=== PATIENT | female | born 1960 | race Caucasian/White ===

== ENCOUNTER → 2020-11-04 14:50 | Outpatient (CLI) | payer BC, SELFPAY ==
--- NOTE | ~2020-11-04 | DEXA_ITS ---
Bone Density Report Name: Jayla Yadav Age: 60 Sex: Female Ethnicity: White Date of : 1960 Indication: osteopenia; height loss; asthma or emphysema; postmenopausal Referring Provider: ROSALES, ADINA Study: Bone densitometry was performed. Exam Date: November 04, 2020 Accession number: [id number] Bone Density: Region BMD T-score Z-score Classification AP Spine (L1-L4) 0.974 -0.7 0.7 Normal Femoral Neck (Left) 0.905 0.5 1.7 Normal Total Hip (Left) 1.358 3.4 4.3 Normal Femoral Neck (Right) 0.880 0.3 1.5 Normal Total Hip (Right) 1.215 2.2 3.1 Normal Total Hip Mean 1.287 2.8 3.7 Normal World Health Organization criteria for BMD impression classify patients as: Normal (T-score at or above -1.0), Osteopenia (T-score between -1.0 and -2.5), or Osteoporosis (T-score at or below -2.5). 10-year Fracture Risk: FRAX not reported because: All T-scores for Spine Total, Hip Total, Femoral Neck at or above -1.0 Previous Exams: Region Exam Age BMD T-score BMD Change BMD Change Date g/cm2 vs Baseline vs Previous AP Spine(L1-L4) 11/04/2020 60 0.974 -0.7 -0.008 0.080* 01/16/2017 56 0.894 -1.4 -0.088* -0.088* 08/07/2013 53 0.982 -0.6 Total Hip(Left) 11/04/2020 60 1.358 3.4 0.071* 0.002 01/16/2017 56 1.356 3.4 0.069* 0.069* 08/07/2013 53 1.287 2.8 Total Hip(Right) 11/04/2020 60 1.215 2.2 0.011 -0.027 01/16/2017 56 1.242 2.5 0.038* 0.038* 08/07/2013 53 1.204 2.2 *Denotes significance at 95% confidence level, LSC for AP Spine = 0.022 g/cm2, LSC for Total Hip = 0.027 g/cm2 Clinical Information Provided by Patient: Has used the following medications: Vitamin D Has the following medical conditions: Asthma or Emphysema, Ablation Patient maximum height was 68.5 Menopause Age: 47 Drinks caffeinated beverages Onset of menses at age 15 Number of children 3 Impression: The patient has normal bone mass. No significant bone loss was observed. Discussion: BONE DENSITY IS ABOVE THE MINIMUM DESIRABLE LEVEL AT ALL SKELETAL SITES TESTED. This patient?s bone mineral density is above the minimum desirable level (T-score -1.0 or better) at all sites measured. The patient should follow a healthful lifestyle (good nutrition with adequate calcium and vitamin D, and appropriate weight-bearing exercise). Follo
--- NOTE | ~2020-11-04 | MM_ITS ---
EXAMINATION: MM screening [facility] BI w [facility] HISTORY: Screening mammogram TECHNIQUE: Craniocaudal and mediolateral oblique 3-D tomosynthesis images were obtained and synthetic 2-D images were generated. CAD analysis was submitted and interpreted. COMPARISON: 01/16/2017, 08/11/2014, 08/07/2013 BREAST PARENCHYMAL COMPOSITION: There are scattered areas of fibroglandular density. FINDINGS: There is no evidence of suspicious mass, calcification, or architectural distortion to sugg est malignancy in either breast. There has been no suspicious interval change. IMPRESSION: 1. No mammographic evidence of malignancy. 2. Recommend routine screening mammography in one year. BI-RADS Category 1: Negative Reviewed, dictated and finalized at location A.
== END ==
PROVIDERS: Visit Provider Nurse Practitioner
DX: Z12.31 Encounter for screening mammogram for malignant neoplasm of breast (principal); M85.88 Other specified disorders of bone density and structure, other site
CPT/HCPCS: 77063; 77067; 77080

== ENCOUNTER → 2020-12-23 10:11 | Outpatient (CLI) | payer BC, SELFPAY ==
--- NOTE | ~2020-12-23 | XR_ITS ---
EXAMINATION: XR ankle LT min 3V, XR foot LT standing 2V DATE: 12/23/2020 11:03 INDICATION: Left heel and foot pain TECHNIQUE: 1. Standing anteroposterior, mortise, additional oblique and lateral view of the left ankle were obta ined. 2. Standing dorsal plantar, two oblique and lateral views of the left foot were obtained. COMPARISON: None. FINDINGS: Hindfoot valgus and mild pes planus. No fracture or osteochondral lesion. Mild polyarticular osteoart hritis including at the ankle, subtalar, first metatarsophalangeal, navicular cuneiform and multiple tarsometatarsal and interphalangeal joints. Moderate-sized plantar calcaneal spur. Smaller enthesophy padmini and enthesopathic ossification at the medial malleolus and lateral base of the fifth metatarsal. No ankle joint effusion. Diffuse soft tissue swelling about the ankle, both medially and laterally. IMPRESSION: 1. Hindfoot valgus and mild pes planus. 2. 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 Reviewed, dictated and finalized at location A. IMPRESSION: 1. Hindfoot valgus and mild pes planus. 2. 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
== END ==
PROVIDERS: PCP Nurse Practitioner Family; Visit Provider Nurse Practitioner Family
DX: M20.12 Hallux valgus (acquired), left foot (principal); M19.072 Primary osteoarthritis, left ankle and foot
CPT/HCPCS: 73610; 73620

== ENCOUNTER 2022-03-15 00:02 | Day surgery (SDC) | payer OTHER, SELFPAY ==
[2022-03-02 09:32] VITALS: BMI 43.4
--- NOTE | 2022-03-14 13:09 | WPDANESEPPF ---
Anes - Initial Pre Proc Eval Procedure: Operation Date: 03/15/22 11:00 Proposed Procedures p Screening Colonoscopy - Deepak Sue MD Date/Time: 03/14/22 13:09 Surgeon: Deepak Sue MD Pre Op Diagnosis: neoplasm screening Patient Data Age: 61 Gender: F Height: 1.73 m Weight: 129.6 kg Allergies Allergy/AdvReac Type Severity Reaction Status Date / Time amlodipine Allergy Severe Swelling Verified 03/15/22 10:42 of Lip/Tongue/Throat, COUGH Sulfa (Sulfonamide Allergy Severe HIVES/ITCHI Verified 03/15/22 10:42 Antibiotics) NG Quinolones Allergy Intermediate HIVES/ITCHI Verified 03/15/22 10:42 NG indomethacin Allergy Unknown Unknown Verified 03/15/22 10:42 lisinopril Allergy Unknown THROAT Verified 03/15/22 10:42 SWELLING niacin Allergy Unknown Unknown Verified 03/15/22 10:42 sulfanilamide Allergy Unknown Hives Verified 03/15/22 10:42 nalbuphine AdvReac Intermediate FELT Verified 03/15/22 10:42 WHOOZY, FUNNY metformin AdvReac Mild DIZZY Verified 03/15/22 10:42 Home Medications Medication Instructions Recorded Confirmed Type diclofenac sodium 75 mg 75 mg PO BID 06/16/19 03/15/22 History tablet,delayed release hydrochlorothiazide 12.5 mg tablet 12.5 mg PO DAILY 06/16/19 03/15/22 History losartan 25 mg tablet 25 mg PO BID 06/16/19 03/15/22 History omeprazole 20 mg capsule,delayed 20 mg PO DAILY 06/16/19 03/15/22 History release canagliflozin 100 mg tablet 100 mg PO DAILY 03/02/22 03/15/22 History (Invokana) semaglutide 0.25 mg or 0.5 mg (2 0.5 mg subcut WEEKLY 03/02/22 03/15/22 History mg/1.5 mL) subcutaneous pen injector (Ozempic) Patient hx anesthesia problems: none Family hx anesthesia problems: none Results Review: All pre-operative results and documents have been reviewed as part of the pre-operative evaluation. [facility] Past Medical History Medical History (Updated 03/14/22 @ 13:09 by Alexandre Awan DO) Asthma Diabetes Hypertension Morbid obesity JENNIFER (obstructive sleep apnea) Surgical History Surgical History (Updated 03/14/22 @ 13:09 by Alexandre Awan DO) History of tubal ligation Family History Family History Father No family history of hypertension Other Cerebrovascular accident Diabetes mellitus Family history of allergic disorder Family history of cardiovascular disease Hypertension Social History Social History Smoking status: Never smoker Alcohol intake: current Alcohol use details: occasional Substance use: never Substance use type: does not use Living arrangements: with family Spiritual care concerns: No Anes - Eval Final PreProcedure Day of Procedure 03/14/22 13:09 Patient weight: morbidly obese Heart: regular rate and rhythm Lungs: clear to auscultation Airway: Mallampati scale class II Neurological: alert and oriented Last oral intake: >/= 8 hours ASA classification: III Emergent: no Anesthetic plan: proceed Anesthesia type and monitoring: general GIVS and standard monitoring Results Review: All pre-operative results and documents have been reviewed as part of the pre-operative evaluation. Informed Consent: The patient's anesthetic plan and its attendant risks and benefits were discussed with the patient/family/POA. Questions were solicited and answers provided to the satisfaction of the patient/family/POA.
[2022-03-15 10:44] VITALS: BP 164/94; PULSE 75; RESP 18; TEMP 36.6; O2SAT 98; BMI 43.2
[2022-03-15] MEDS: LACTATED RINGERS 1,000 ML 150 ML IV CONT (11:00)
[2022-03-15 11:01] LABS: Glucose Point of Care 106 mg/dl (65-105)
--- NOTE | 2022-03-15 11:24 | PM.IMHP ---
H&P: HPI History of Present Illness Date/Time: 03/15/22 11:24 Chief Complaint: Neoplasia screening. Narrative: This is a 61-year-old white female patient presents for screening colonoscopy. Patient reports that her current weight appetite and bowel movements are normal. Patient denies abdominal pain. She has had no bleeding. Family history is noncontributory. Review of Systems Review of Systems: Review of systems noncontributory. [facility] Past Medical History Medical History (Updated 03/15/22 @ 11:25 by Deepak Sue MD) Asthma Diabetes Hypertension Morbid obesity JENNIFER (obstructive sleep apnea) Surgical History Surgical History (Updated 03/14/22 @ 13:09 by Alexandre Awan DO) History of tubal ligation Family History Family History Father No family history of hypertension Other Cerebrovascular accident Diabetes mellitus Family history of allergic disorder Family history of cardiovascular disease Hypertension Social History Social History Smoking status: Never smoker Alcohol intake: current Alcohol use details: occasional Substance use: never Substance use type: does not use Living arrangements: with family Spiritual care concerns: No Meds Home Medications and Allergies Home Medications Medication Instructions Recorded Confirmed Type diclofenac sodium 75 mg 75 mg PO BID 06/16/19 03/15/22 History tablet,delayed release hydrochlorothiazide 12.5 mg tablet 12.5 mg PO DAILY 06/16/19 03/15/22 History losartan 25 mg tablet 25 mg PO BID 06/16/19 03/15/22 History omeprazole 20 mg capsule,delayed 20 mg PO DAILY 06/16/19 03/15/22 History release canagliflozin 100 mg tablet 100 mg PO DAILY 03/02/22 03/15/22 History (Invokana) semaglutide 0.25 mg or 0.5 mg (2 0.5 mg subcut WEEKLY 03/02/22 03/15/22 History mg/1.5 mL) subcutaneous pen injector (Ozempic) Allergies Allergy/AdvReac Type Severity Reaction Status Date / Time amlodipine Allergy Severe Swelling Verified 03/15/22 10:42 of Lip/Tongue/Throat, COUGH Sulfa (Sulfonamide Allergy Severe HIVES/ITCHI Verified 03/15/22 10:42 Antibiotics) NG Quinolones Allergy Intermediate HIVES/ITCHI Verified 03/15/22 10:42 NG indomethacin Allergy Unknown Unknown Verified 03/15/22 10:42 lisinopril Allergy Unknown THROAT Verified 03/15/22 10:42 SWELLING niacin Allergy Unknown Unknown Verified 03/15/22 10:42 sulfanilamide Allergy Unknown Hives Verified 03/15/22 10:42 nalbuphine AdvReac Intermediate FELT Verified 03/15/22 10:42 WHOOZY, FUNNY metformin AdvReac Mild DIZZY Verified 03/15/22 10:42 Vital Signs Vital Signs - 24 hr 03/15/22 10:44 Temperature 97.8 F Pulse Rate 75 Respiratory Rate 18 Blood Pressure 164/94 H Pulse Oximetry 98 Oxygen Delivery Room Air Exam Narrative: Physical exam reveals patient to be alert. Vital signs stable. HEENT exam is unremarkable. Patient is anicteric. Lungs are clear to auscultation and percussion. Heart is without murmur or extra sounds. Abdomen is obese. Bowel sounds present soft nontender with no organomegaly. Digital external rectal exam is normal. Assessment and Plan Assessment and plan (1) Encounter for screening colonoscopy: Code(s): Z12.11 - Encounter for screening for malignant neoplasm of colon Status: Acute Assessment and Plan: Patient presents today for screening colonoscopy. She appears to be at average risk for colon polyps. (2) Morbid obesity: Code(s): E66.01 - Morbid (severe) obesity due to excess calories Status: Acute
[2022-03-15 12:20] VITALS: BP 132/65; PULSE 71; RESP 20; O2SAT 97
[2022-03-15 12:30] VITALS: BP 137/77; PULSE 64; RESP 14; O2SAT 98
[2022-03-15 12:31] LABS: Glucose Point of Care 90 mg/dl (65-105)
[2022-03-15 12:40] VITALS: BP 139/74; PULSE 77; RESP 22; O2SAT 100
== END 2022-03-15 13:08 | disposition home or self-care (01) ==
PROVIDERS: PCP Nurse Practitioner Family; Visit Provider Internal Medicine Gastroenterology
PROC: 0DJD8ZZ Inspection of Lower Intestinal Tract, Via Natural or Artificial Opening Endoscopic (ICD-10-PCS; CPT 45378; principal; 2022-03-15 11:00)
DX: Z12.11 Encounter for screening for malignant neoplasm of colon (principal); K64.8 Other hemorrhoids; K57.30 Diverticulosis of large intestine without perforation or abscess without bleeding; I10 Essential (primary) hypertension; E11.9 Type 2 diabetes mellitus without complications; G47.33 Obstructive sleep apnea (adult) (pediatric); Z79.899 Other long term (current) drug therapy; Z79.84 Long term (current) use of oral hypoglycemic drugs; E66.01 Morbid (severe) obesity due to excess calories; Z68.41 Body mass index [BMI] 40.0-44.9, adult
CPT/HCPCS: 45378; 82948; J2704; J7120

== ENCOUNTER → 2023-01-23 08:53 | Outpatient (CLI) | payer OTHER, SELFPAY ==
--- NOTE | ~2023-01-23 | MM_ITS ---
EXAMINATION: MM screening [facility] BI w [facility] HISTORY: Screening mammogram TECHNIQUE: Craniocaudal and mediolateral oblique 3-D tomosynthesis images were obtained and synthetic 2-D images were generated. CAD analysis was submitted and interpreted. COMPARISON: 11/04/2020, 01/16/2017, 08/11/2014 bilateral screening mammogram examinations BREAST PARENCHYMAL COMPOSITION: There are scattered areas of fibroglandular density. FINDINGS: Occasional benign calcifications including a couple of linear array views of microcalcifica tions in the outer left breast. There is no evidence of suspicious mass, calcification, or architectu ral distortion to suggest malignancy in either breast. There has been no suspicious interval change. IMPRESSION: 1. No mammographic evidence of malignancy. 2. Recommend routine screening mammography in one year. BI-RADS Category 1: Negative Reviewed, dictated and finalized at location A.
== END ==
PROVIDERS: PCP Nurse Practitioner Family; Visit Provider Nurse Practitioner Family
DX: Z12.31 Encounter for screening mammogram for malignant neoplasm of breast (principal)
CPT/HCPCS: 77063; 77067

== ENCOUNTER 2023-12-05 01:30 | Emergency (ER) | payer OTHER, SELFPAY ==
--- NOTE | ~2023-12-05 | XR_ITS ---
Clinical Indication: Dyspnea PA and lateral views of the chest: Comparison: 11/30/2016 Findings: The lungs are clear, without evidence of focal consolidation or pleural effusion. Cardiome diastinal silhouette is within normal limits. Bones and soft tissues are unremarkable. Impression: Normal chest. Reviewed, dictated and finalized at location . Impression: Normal chest.
--- NOTE | ~2023-12-05 | CT_ITS ---
CT of the Abdomen and Pelvis: Indication: Abdominal pain Technique: 2.5 mm axial scans were obtained through the abdomen and pelvis following intravenous adm inistration of 100 cc of Omnipaque 350. Dose reduction technique was used on this scan by utilizing a utomated exposure control and iterative reconstruction technique. The dose-length product (DLP) was 1 538.51 mGy-cm. Findings: Scans through the lung bases are unremarkable. Diffuse hepatic steatosis present. Cholecystectomy clips are present. The spleen, pancreas, adrenals and kidneys are within normal limits. No evidence of aortic aneurysm. No lymphadenopathy. No bowel obstruction or bowel wall thickening. There is no evidence to suggest acute appendicitis. Images through the pelvis were performed. Urinary bladder unremarkable. No significant pelvic mass se en. No ascites. Impression: No acute abnormalities seen. Diffuse hepatic steatosis. Reviewed, dictated and finalized at [facility]. Impression: No acute abnormalities seen. Diffuse hepatic steatosis.
[2023-12-05 01:43] VITALS: BP 151/66; PULSE 85; RESP 15; TEMP 37; O2SAT 97
--- NOTE | 2023-12-05 02:06 | ECG_ITS ---
SEE SCANNED COPY FOR CONFIRMED REPORT MTDD
[2023-12-05 02:10] LABS: Basophils Percent Auto 0.3 % (0.2-1.2); Eosinophils Absolute Auto 0.1 K/mm3 (0-0.3); Eosinophils Percent Auto 1.4 % (0-4.4); Hemoglobin 15.7 g/dL (12.0-15.0); Immature Granulocyte Absolute 0.03 K/mm3 (0.00-0.031); Immature Granulocyte Percent A 0.3 % (0-0.5); Lymphocytes Absolute Auto 1.52 K/mm3 (0.9-3.2); Lymphocytes Percent Auto 16.2 % (18.3-44.2); Mean Corpuscular HGB Conc 34.9 g/dl (32-36); Mean Corpuscular Hemoglobin 31.7 pg (26-34); Mean Corpuscular Volume 90.9 fl (80-100); Mean Platelet Volume 9.1 fl (7.4-10.4); Monocytes Absolute Auto 0.5 K/mm3 (0.1-0.6); Monocytes Percent Auto 5.8 % (2.6-8.5); Neutrophils Absolute Auto 7.1 K/mm3 (1.3-6.7); Platelet Count Result 219 k/mm3 (150-375); Red Blood Count 4.95 M/mm3 (4.2-5.4); Red Cell Distribution Width 11.9 % (11.5-14.5); White Blood Count 9.4 K/mm3 (4.5-10.0)
[2023-12-05 02:12] LABS: Appearance Urine Clear (Clear); Bilirubin Urine Negative (Negative); Blood Urine Negative (Negative); Color Urine Yellow (Yellow); Glucose Urine UA 3+ mg/dL (Negative); Ketones Urine Negative (Negative); Leukocyte Esterase Ur Negative LEU/UL (Negative); Nitrate Urine Negative (Negative); Protein Urine Negative (Negative); Urobilinogen Urine 0.2 mg/dL (<2.0)
--- NOTE | 2023-12-05 02:17 | ED.ABDPAIN ---
HPI - Abdominal Pain General Chief Complaint: Abdominal Pain <Lidia Velazquez PA-C - Last Filed: 12/05/23 03:19> Stated Complaint: abd pain <Lidia Velazquez PA-C - Last Filed: 12/05/23 03:19> Time Seen by Provider: 12/05/23 02:02 <Lidia Velazquez PA-C - Last Filed: 12/05/23 03:19> History of Present Illness HPI narrative: 63-year-old female with history of reported prediabetes, hypertension, JENNIFER and asthma presents to emergency department for abdominal pain, nausea, bloating and gas that started yesterday. Patient states her abdomen is distended and she feels very bloated. She denies focal abdominal pain but states she has had excessive flatulence and belching. She is reporting increase in reflux and some shortness of breath which she believes is secondary to her abdomen being distended in her not being able to take a full breath. She takes omeprazole daily as prescribed. She denies fever, dysuria or hematuria, chest pain. She reports multiple abdominal surgeries including an inguinal hernia repair, multiple sections, cholecystectomy and tubal ligation. <Lidia Velazquez PA-C - Last Filed: 12/05/23 03:19> Related Data Home Medications: Home Medications Medication Instructions Recorded Confirmed diclofenac sodium 75 mg 75 mg PO BID 06/16/19 03/15/22 tablet,delayed release hydrochlorothiazide 12.5 mg tablet 12.5 mg PO DAILY 06/16/19 03/15/22 losartan 25 mg tablet 25 mg PO BID 06/16/19 03/15/22 omeprazole 20 mg capsule,delayed 20 mg PO DAILY 06/16/19 03/15/22 release canagliflozin 100 mg tablet 100 mg PO DAILY 03/02/22 03/15/22 (Invokana) semaglutide 0.25 mg or 0.5 mg (2 0.5 mg subcut WEEKLY 03/02/22 03/15/22 mg/1.5 mL) subcutaneous pen injector (Ozempic) <Lidia Velazquez PA-C - Last Filed: 12/05/23 03:19> Allergies/Adverse Reactions: Allergies Allergy/AdvReac Type Severity Reaction Status Date / Time amlodipine Allergy Severe Swelling Verified 03/15/22 10:42 of Lip/Tongue/Throat, COUGH Sulfa (Sulfonamide Allergy Severe HIVES/ITCHI Verified 03/15/22 10:42 Antibiotics) NG Quinolones Allergy Intermediate HIVES/ITCHI Verified 03/15/22 10:42 NG indomethacin Allergy Unknown Unknown Verified 03/15/22 10:42 lisinopril Allergy Unknown THROAT Verified 03/15/22 10:42 SWELLING niacin Allergy Unknown Unknown Verified 03/15/22 10:42 sulfanilamide Allergy Unknown Hives Verified 03/15/22 10:42 nalbuphine AdvReac Intermediate FELT Verified 03/15/22 10:42 WHOOZY, FUNNY metformin AdvReac Mild DIZZY Verified 03/15/22 10:42 <Lidia Velazquez PA-C - Last Filed: 12/05/23 03:19> Review of Systems Review of Systems: CONSTITUTIONAL: Denies fever, chills, or sweats. EYES: Denies visual changes, redness, or discharge. ENT: Denies rhinorrhea, congestion, sore throat, or otalgia. CARDIOVASCULAR: Denies chest pain, palpitations, or edema. RESPIRATORY: See HPI GASTROINTESTINAL: See HPI GENITOURINARY: Denies dysuria or hematuria. SKIN: Denies rash or itching. MUSCULOSKELETAL: Denies back pain, joint pain, or myalgia. NEUROLOGIC: Denies headache, numbness, or weakness. PSYCHIATRIC: Denies anxiety or depression. <Lidia Velazquez PA-C - Last Filed: 12/05/23 03:19> [facility] Past Medical History Medical History: Medical History Asthma Diabetes Hypertension Morbid obesity JENNIFER (obstructive sleep apnea) <Liida Velazquez PA-C - Last Filed: 12/05/23 03:19> Surgical History Surgical History: Surgical History History of tubal ligation <Lidia Velazquez PA-C - Last Filed: 12/05/23 03:19> Family History Family History: Family History Father No family history of hypertension Other Cerebrovascular accident Diabetes mellitus Famil
[2023-12-05 02:19] LABS: Specific Grav Ur 1.035 (1.001-1.035)
[2023-12-05 02:20] LABS: Add Urine Microscopic? YES
[2023-12-05 02:22] LABS: Lactic Acid Reflex 1.6 mmol/L (0.7-2.0)
[2023-12-05] MEDS: BELLADONNA ALK/PHENOB ELIX 10 ML, MAG HYDROX/ALUMINUM HYD/SIMETH 30 ML, LIDOCAINE HCL 2... PO (02:52)
[2023-12-05] MEDS: SODIUM CHLORIDE 0.9% IV 1,000 ML 999 ML IV CONT (02:53)
[2023-12-05] MEDS: ONDANSETRON INJ 4 MG/2 ML VIAL IV PUSH (02:53)
[2023-12-05] MEDS: FAMOTIDINE 20 MG/2 ML VIAL IV PUSH (02:53)
[2023-12-05 02:58] LABS: Alanine Aminotransferase 60 U/L (6-35); Albumin Level 4.8 g/dL (3.5-5.1); Alkaline Phosphatase 63 U/L (38-126); Anion Gap 9 mmol/L (4-12); Aspartate Amino Transferase 33 U/L (14-36); Bilirubin,Total 0.6 mg/dL (0.2-1.3); Blood Urea Nitrogen 16 mg/dL (7-17); Carbon Dioxide 23 mmol/L (22-30); Chloride 108 mmol/L (98-107); Estimated CRCL calculation 106 ml/min; Estimated Glomerular Filt Rate > 60; Glucose 168 mg/dL (65-110); Lipase 173 U/L (23-300); Potassium 3.9 mmol/L (3.4-5.0); Sodium 140 mmol/L (137-145)
[2023-12-05 03:09] LABS: Troponin I < 0.012 ng/mL (0.000-0.034)
[2023-12-05 03:34] VITALS: BP 161/87; PULSE 84; RESP 18; O2SAT 94
[2023-12-05 04:21] LABS: Partial Thromboplastin Time 30.3 Seconds (22.3-36.8)
== END 2023-12-05 04:37 | disposition home or self-care (01) ==
PROVIDERS: Physician Assistant; Emergency Provider Emergency Medicine; PCP Internal Medicine
DX: R10.13 Epigastric pain (principal); I10 Essential (primary) hypertension; J45.909 Unspecified asthma, uncomplicated; E11.9 Type 2 diabetes mellitus without complications; E66.01 Morbid (severe) obesity due to excess calories; Z68.42 Body mass index [BMI] 45.0-49.9, adult; G47.33 Obstructive sleep apnea (adult) (pediatric); Z79.85 Long-term (current) use of injectable non-insulin antidiabetic drugs
CPT/HCPCS: 36415; 71046; 74177; 80053; 81001; 82248; 83605; 83690; 84484; 85025; 85610; 85730; 93005; 96361; 96374; 96375; 99284; A9270; J2405; J7030; Q9967

== ENCOUNTER 2025-01-12 15:40 | Outpatient (CLI) | payer OTHER, SELFPAY ==
--- NOTE | ~2025-01-12 | MM_ITS ---
EXAMINATION: MM screening [facility] HISTORY: Screening mammogram TECHNIQUE: Craniocaudal and mediolateral oblique 3-D tomosynthesis images were obtained and synthetic 2-D images were generated. CAD analysis was submitted and interpreted. COMPARISON: 01/23/2023 through 08/07/2013 BREAST PARENCHYMAL COMPOSITION: There are scattered areas of fibroglandular density. FINDINGS: There is no evidence of suspicious mass, calcification, or architectural distortion to sugg est malignancy in either breast. There has been no suspicious interval change. IMPRESSION: 1. No mammographic evidence of malignancy. 2. Recommend routine screening mammography in one year. BI-RADS Category 1: Negative Reviewed, dictated and finalized at location B.
== END 2025-01-12 15:41 | disposition home or self-care (01) ==
LOC: MICIMG 15:41
PROVIDERS: PCP Family Medicine
DX: Z12.31 Encounter for screening mammogram for malignant neoplasm of breast (principal)
CPT/HCPCS: 77063; 77067